=== PATIENT | female | born 1995 | race Two or more races ===

== ENCOUNTER 2016-09-16 02:12 | Emergency (ER) | payer SELFPAY ==
[~2016-09-16] VITALS: Ht 157.5 cm; Wt 49.9 kg
[2016-09-16] MEDS ORDERED: IBUPROFEN 400 MG TABLET ONE (02:27)
[2016-09-16] MEDS ORDERED: IBUPROFEN 400 MG TABLET PO ONE (02:30)
[2016-09-16 02:43] VITALS: BP 107/66
== END 2016-09-16 02:47 | disposition home or self-care (01) ==
LOC: ER 02:19
DX: R25.2 Cramp and spasm (principal); W07.XXXA Fall from chair, initial encounter; Y93.89 Activity, other specified; Y92.89 Other specified places as the place of occurrence of the external cause; Y99.8 Other external cause status
CPT/HCPCS: A4606; Z7610